=== PATIENT | female | born 1960 | race Caucasian/White ===

== ENCOUNTER 2016-04-14 21:21 | Emergency (ER) | payer OTHER ==
[~2016-04-14] VITALS: Ht 170.2 cm; Wt 76.2 kg
[~2016-04-14 21:21] MED LIST: DOXYCYCLINE HY100 MG PO
[2016-04-14] MEDS ORDERED: MOTRIN600 MG PO (22:48)
[2016-04-14] MEDS ORDERED: FLEXERIL5 MG PO (22:48)
[2016-04-14 22:56] VITALS: BP 154/76
== END 2016-04-14 22:57 | disposition home or self-care (01) ==
LOC: EME 21:21
DX: S20.219A Contusion of unspecified front wall of thorax, initial encounter (principal); S16.1XXA Strain of muscle, fascia and tendon at neck level, initial encounter; V43.63XA Car passenger injured in collision with pick-up truck in traffic accident, initial encounter; Y92.488 Other paved roadways as the place of occurrence of the external cause; E78.5 Hyperlipidemia, unspecified
CPT/HCPCS: 71020; 99281; 99284